=== PATIENT | female | born 1970 | race Caucasian/White ===

== ENCOUNTER 2025-03-12 11:49 | Emergency (ER) | payer BC ==
[~2025-03-12] VITALS: Ht 152.4 cm; Wt 105.5 kg
[2025-03-12 11:59] VITALS: BP 138/65; TEMP 97.7; O2SAT 96
[2025-03-12] MEDS ORDERED: VERZ100T PO (12:12)
[2025-03-12] MEDS ORDERED: CITA10TA6 PO (12:13)
[2025-03-12] MEDS ORDERED: BISO1TAB18 PO (12:13)
[2025-03-12] MEDS ORDERED: LISI10TA22 PO (12:14)
[2025-03-12] MEDS ORDERED: HOME MED LIST COMPLETE! XX SCH (12:30)
== END 2025-03-12 12:55 | disposition home or self-care (01) ==
LOC: EDBD 11:49 → M ED 11:49
DX: S00.93XA Contusion of unspecified part of head, initial encounter (principal); W01.198A Fall on same level from slipping, tripping and stumbling with subsequent striking against other object, initial encounter; Y92.511 Restaurant or cafe as the place of occurrence of the external cause; Y93.89 Activity, other specified; Y99.9 Unspecified external cause status; Z79.899 Other long term (current) drug therapy